=== PATIENT | male | born 1980 | race Caucasian/White ===

== ENCOUNTER 2020-09-22 17:18 | Emergency (ER) | payer BC ==
[2020-09-22] MEDS ORDERED: CETAPHIL240 ML TOP (19:54)
== END 2020-09-22 20:35 | disposition home or self-care (01) ==
LOC: ER1 17:18
DX: L29.9 Pruritus, unspecified (principal); L81.9 Disorder of pigmentation, unspecified; F17.200 Nicotine dependence, unspecified, uncomplicated
CPT/HCPCS: 82962; 99282

== ENCOUNTER 2021-06-06 08:08 | Emergency (ER) | payer BC ==
[~2021-06-06 08:08] MED LIST: CETAPHIL240 ML TOP
[2021-06-06 12:01] LABS: HEMOGLOBIN 14.8 gm/dl (14.0-17.5); RED BLOOD COUNT 4.95 M/UL (4.20-5.50); WHITE BLOOD COUNT 6.6 K/UL (4.5-11.0)
[2021-06-06 12:05] LABS: BUN/CREATININE RATIO 13 (0-10)
== END 2021-06-06 13:22 | disposition home or self-care (01) ==
LOC: ER1 08:08
PROVIDERS: Nurse Practitioner
DX: L81.9 Disorder of pigmentation, unspecified (principal); M79.662 Pain in left lower leg; M79.661 Pain in right lower leg; F17.210 Nicotine dependence, cigarettes, uncomplicated
CPT/HCPCS: 80048; 85025; 99283